=== PATIENT | male | born 1975 | race Two or more races ===

== ENCOUNTER → 2018-10-20 | Emergency (ER) | payer OTHER ==
[~2018-10-20] VITALS: Ht 180.3 cm; Wt 95.3 kg
[~2018-10-20] MED LIST: COZAAR25 MG; ZIAC 5-6.25 MG1 TAB
== END | disposition home or self-care (01) ==
LOC: ER 23:08 → CPU-OBS 23:19 → ER 23:19
DX: R07.89 Other chest pain (principal)
CPT/HCPCS: G0378; G0379; 93005